=== PATIENT | female | born 1960 | race Hispanic/Latino ===

== ENCOUNTER 2021-04-15 08:48 | Outpatient (CLI) | payer OTHER ==
[2021-04-15 23:34] LABS: SARS-CoV-2 PCR by NAA DETECTED (NotDetected)
== END 2021-04-15 08:49 | disposition home or self-care (01) ==
LOC: CSHLAB 08:48
PROVIDERS: ATTEND Internal Medicine Pulmonary Disease
DX: U07.1 COVID-19 (principal)
CPT/HCPCS: U0003; U0005